=== PATIENT | female | born 1950 | race American Indian/Alaskan Native ===

== ENCOUNTER 2020-07-03 21:48 | Emergency (ER) | payer MEDICARE ==
[2020-07-03 23:23] LABS: Basophils # (Auto) 0.1 K/mm3 (0.0-0.1); Basophils % (Auto) 2.6 % (0.0-1.8); Eosinophils # (Auto) 0.2 K/mm3 (0.0-0.4); Eosinophils % (Auto) 3.2 % (0.0-4.3); Hematocrit 42.6 % (30.3-42.9); Hemoglobin 14.4 gm/dl (10.1-14.3); Lymphocytes # (Auto) 2.5 K/mm3 (1.2-5.4); Lymphocytes % (Auto) 49.4 % (13.4-35.0); Mean Corpuscular HGB Conc 34 % (30-34); Mean Corpuscular Volume 97 fl (79-97); Monocytes # (Auto) 0.4 K/mm3 (0.0-0.8); Monocytes % (Auto) 8.1 % (0.0-7.3); Platelet Count 241 K/mm3 (140-440); Red Blood Count 4.38 M/mm3 (3.65-5.03); Red Cell Distribution Width 13.4 % (13.2-15.2)
[2020-07-03 23:47] LABS: Albumin 4.8 g/dL (3.9-5); Calcium 9.8 mg/dL (8.4-10.2)
[2020-07-03] MEDS ORDERED: MORPHINE 4 MG/1 ML INJ IV ONE (23:57)
[2020-07-03] MEDS ORDERED: ONDANSETRON 4 MG/2 ML INJ IV ONE (23:57)
[2020-07-03] MEDS ORDERED: LACTATED RINGERS 1,000 ML IV ONE (23:57)
--- NOTE | 2020-07-04 00:02 | Emergency Department Report ---
ED General Adult HPI - General Chief complaint: GI Bleed Stated complaint: PAIN AND BLEEDING PUI?: No Time Seen by Provider: 07/03/20 23:39 Source: patient, RN notes reviewed Mode of arrival: Ambulatory Limitations: No Limitations - History of Present Illness Initial comments: The patient was evaluated in the emergency department for symptoms described in the history of present illness. He/she was evaluated in the context of the global COVID-19 pandemic, which necessitated consideration that the patient might be at risk for infection with the virus that causes COVID-19. Institutional protocols and algorithms that pertain to the evaluation of patients at risk for COVID-19 are in a state of rapid change based on informat ion released by regulatory bodies including the CDC and federal and state organizations. These policies and algorithms were followed during the patient's care in the emergency department. Please note that these policies, procedures and recommendations changed on a rapid basis. Primary CARE doctor: Aury During the history and physical examination, I am chaperoned by nurse Maria Elena Oscar Patient is a 69-year-old female. She is not known to myself previously. Her past medical history includes diverticulosis, diverticulitis, high cholesterol. Patient surgical history significant for hysterectomy, and "stent in brain ( for aneurysm)." Patient reports having had a colonoscopy 2 years ago, which was "negative." She presents to the ER with a complaint of nontraumatic left lower quadrant left flank pain, with intermittent brown stool, that is occasionally bloody for the past 3 days. No headache, neck pain, chest pain, shortness of breath. No vomiting. Positive nausea. No dysuria. No travel, surgery, leg pain, leg swelling, patient denies DVT and pulmonary embolism risk factors. She denies loss of taste and smell. Within the past 24 hours, she had brown stool intermixed with red blood. She states she does not take blood thinning medicines currently. Abdominal pain is cramping and sharp, increases with palpation, decreases with rest and position. -: Gradual, days(s) Location: abdomen Radiation: abdomen Quality: aching Consistency: intermittent Improves with: rest Worsens with: movement - Related Data Previous Rx's Medication Instructions Recorded Last Taken Type Acetaminophen [Non-Aspirin Extra 500 mg PO Q6HR PRN #30 tablet 07/04/20 Unknown Rx Strength] Amoxicillin/Potassium Clav 1 each PO BID #9 tablet 07/04/20 Unknown Rx [Augmentin 875-125 Tablet] Kandice Root [Kandice] 250 mg PO QID PRN #30 capsule 07/04/20 Unknown Rx Allergies Allergy/AdvReac Type Severity Reaction Status Date / Time No Known Allergies Allergy Unverified 07/03/20 22:56 ED Review of Systems ROS: Stated complaint: PAIN AND BLEEDING Other details as noted in HPI Constitutional: other (Patient denies loss of taste and smell). denies: fever Eyes: denies: eye discharge ENT: denies: epistaxis Cardiovascular: denies: chest pain Gastrointestinal: abdominal pain, nausea, hematochezia. denies: melena Genitourinary: denies: dysuria Musculoskeletal: back pain Neurological: denies: weakness Hematological/Lymphatic: denies: easy bleeding ED Past Medical Hx - Past Medical History Previous Medical History?: Yes Additional medical history: Diverticolosis, Scoliosis, Brain Anuerysm. Gallstones, High Cholesterol, - Surgical History Past Surgical History?: Yes Additional Surgical History: Stent in brain. Hysterectomy. Left foot. Right foot - Social History Smoking Status: Current Every Day Smoker Substance Use Type: None - Medications Home Medications: Home Medications Medication Instructions Recorded Confirmed Last Taken Type Acetaminophen [Non-Aspirin Extra 500 mg PO Q6HR PRN #30 tablet 07/04/20 Unknown Rx Strength] Amoxicillin/Potassium Clav 1 each PO BID #9 tablet 07/04/20 Unknown Rx [Augmentin 875-125 Tablet] Kadnice Root [Kandice] 250 mg PO QID PRN #30 capsule 07/04/20 Unknown Rx ED Physical Exam - General Limitations: No Limitations General appearance: alert, in no apparent distress - Head Head exam: Present: atraumatic, normocephalic - Eye Eye exam: Present: normal appearance, EOMI. Absent: nystagmus - ENT ENT exam: Present: normal exam, normal orophraynx, mucous membranes moist, normal external ear exam - Neck Neck exam: Present: normal inspection, full ROM. Absent: tenderness, meningismus - Respiratory Respiratory exam: Present: normal lung sounds bilaterally. Absent: respiratory distress, wheezes, rales, rhonchi, stridor, decreased breath sounds - Cardiovascular Cardiovascular Exam: Present: regular rate, normal rhythm, normal heart sounds. Absent: bradycardia, tachycardia, irregular rhythm, systolic murmur, diastolic murmur, rubs, gallop - GI/Abdominal GI/Abdominal exam: Present: soft, tenderness, other (There is left lower quadrant tenderness and left flank tenderness to deep palpation). Absent: distended, guarding, rebound, rigid, pulsatile mass - Rectal Rectal exam: Present: normal inspection, normal rectal tone, heme (-) stool, other (Chaperoned by nurse Cheryl New). Absent: heme (+) stool, black stool, bloody stool, fecal impaction - Extremities Exam Extremities exam: Present: normal inspection, full ROM, other (2+ pulses noted in the bilateral upper and lower extremities. There is no palpable cord. negative Homans sign. Muscular compartments are soft. The pelvis is stable.). Absent: pedal edema, calf tenderness - Back Exam Back exam: Present: normal inspection, full ROM. Absent: tenderness, CVA tenderness (R), CVA tenderness (L), paraspinal tenderness, vertebral tenderness - Neurological Exam Neurological exam: Present: alert, oriented X3, other (No facial droop. Tongue midline. Extraocular movements intact bilaterally. Facial sensation intact to light touch in V1, V2, V3 distribution bilaterally. 5 and a 5 strength in 4 extremities. Sensation intact to light touch in 4 extremities.). Absent: motor sensory deficit - Psychiatric Psychiatric exam: Present: normal affect, normal mood - Skin Skin exam: Present: warm, dry, intact, normal color. Absent: rash ED Course Vital Signs 07/03/20 07/04/20 07/04/20 22:52 01:14 01:16 Temperature 98.1 F Pulse Rate 79 85 88 Respiratory 16 17 15 Rate Blood Pressure 112/76 127/81 O2 Sat by Pulse 97 91 90 Oximetry - Reevaluation(s) Reevaluation #1: 07/04/20 00:01 Differential diagnosis, including but not limited to: Diverticulosis, diverticulitis, angiodysplasia, inflammatory bowel disease, malignancy Assessment and plan: 69-year-old female, with reported history of diverticulosis, left lower quadrant flank pain, reports having had unremarkable colonoscopy within the past 2-1/2 years, likely presenting with diverticulitis flare. We will treat her pain, obtain EKG, urinalysis, obtain CT scan of the abdomen pelvis, and reassess after initial data points. I have discussed this plan of care with the patient, who verbalized understanding, and is amenable to this plan of care. 07/04/20 01:22 Patient resting comfortably at this time, and in no acute distress. CT scan of the abdomen pelvis negative for acute findings. Urinalysis suggests bacteriuria and pyuria. Therefore, it is possible that patient may have a mild case of diverticulitis, not visualized on CT scan, versus mild pyelonephritis. I will cover her empirically with Augmentin, discharged with pain medication, counseled patient to follow-up with outpatient primary care doctor, return precautions are reviewed. At this point in time, belly soft, tolerating liquid feeds, no active vomiting, suitable for trial of outpatient management 07/04/20 01:26 Patient saturating 97% on my examination, documented pulse ox is of 90/91 likely error. Patient has endorsed no respiratory complaints to myself. ED Medical Decision Making - Lab Data Result diagrams: 07/03/20 23:06 07/03/20 23:06 Vital Signs 07/03/20 07/04/20 07/04/20 22:52 01:14 01:16 Temperature 98.1 F Pulse Rate 79 85 88 Respiratory 16 17 15 Rate Blood Pressure 112/76 127/81 O2 Sat by Pulse 97 91 90 Oximetry Lab Results 07/03/20 07/03/20 07/03/20 Range/Units 23:05 23:06 23:06 WBC 5.0 (4.5-11.0) K/mm3 RBC 4.38 (3.65-5.03) M/mm3 Hgb 14.4 H (10.1-14.3) gm/dl Hct 42.6 (30.3-42.9) % MCV 97 (79-97) fl MCH 33 H (28-32) pg MCHC 34 (30-34) % RDW 13.4 (13.2-15.2) % Plt Count 241 (140-440) K/mm3 Lymph % (Auto) 49.4 H (13.4-35.0) % [place] % (Auto) 8.1 H (0.0-7.3) % Eos % (Auto) 3.2 (0.0-4.3) % Baso % (Auto) 2.6 H (0.0-1.8) % Lymph # (Auto) 2.5 (1.2-5.4) K/mm3 [place] # (Auto) 0.4 (0.0-0.8) K/mm3 Eos # (Auto) 0.2 (0.0-0.4) K/mm3 Baso # (Auto) 0.1 (0.0-0.1) K/mm3 Seg Neutrophils % 36.7 L (40.0-70.0) % Seg Neutrophils # 1.8 (1.8-7.7) K/mm3 Sodium 141 (137-145) mmol/L Potassium 5.1 H (3.6-5.0) mmol/L Chloride 102.3 (98-107) mmol/L Carbon Dioxide 29 (22-30) mmol/L Anion Gap 15 mmol/L BUN 17 (7-17) mg/dL Creatinine 1.2 (0.6-1.2) mg/dL Estimated GFR 54 ml/min BUN/Creatinine Ratio 14 % Glucose 96 (65-100) mg/dL Calcium 9.8 (8.4-10.2) mg/dL Magnesium (1.7-2.3) mg/dL Total Bilirubin 0.20 (0.1-1.2) mg/dL AST 18 (5-40) units/L ALT 10 (7-56) units/L Alkaline Phosphatase 104 (35-129) units/L Total Creatine Kinase (30-135) units/L Total Protein 7.3 (6.3-8.2) g/dL Albumin 4.8 (3.9-5) g/dL Albumin/Globulin Ratio 1.9 % Urine Color Yellow (Yellow) Urine Turbidity Clear (Clear) Urine pH 5.0 (5.0-7.0) Ur Specific [place] 1.014 (1.003-1.030) Urine Protein <15 mg/dl (Negative) mg/dL Urine Glucose (UA) Neg (Negative) mg/dL Urine Ketones Neg (Negative) mg/dL Urine Blood Neg (Negative) Urine Nitrite Neg (Negative) Urine Bilirubin Neg (Negative) Urine Urobilinogen 2.0 (<2.0) mg/dL Ur Leukocyte Esterase Sm (Negative) Urine WBC (Auto) 5.0 (0.0-6.0) /HPF Urine RBC (Auto) 3.0 (0.0-6.0) /HPF U Epithel Cells (Auto) 4.0 (0-13.0) /HPF Urine Bacteria (Auto) 1+ (Negative) /HPF Urine Mucus Few /HPF 07/03/20 Range/Units 23:06 WBC (4.5-11.0) K/mm3 RBC (3.65-5.03) M/mm3 Hgb (10.1-14.3) gm/dl Hct (30.3-42.9) % MCV (79-97) fl MCH (28-32) pg MCHC (30-34) % RDW (13.2-15.2) % Plt Count (140-440) K/mm3 Lymph % (Auto) (13.4-35.0) % [place] % (Auto) (0.0-7.3) % Eos % (Auto) (0.0-4.3) % Baso % (Auto) (0.0-1.8) % Lymph # (Auto) (1.2-5.4) K/mm3 [place] # (Auto) (0.0-0.8) K/mm3 Eos # (Auto) (0.0-0.4) K/mm3 Baso # (Auto) (0.0-0.1) K/mm3 Seg Neutrophils % (40.0-70.0) % Seg Neutrophils # (1.8-7.7) K/mm3 Sodium (137-145) mmol/L Potassium (3.6-5.0) mmol/L Chloride (98-107) mmol/L Carbon Dioxide (22-30) mmol/L Anion Gap mmol/L BUN (7-17) mg/dL Creatinine (0.6-1.2) mg/dL Estimated GFR ml/min BUN/Creatinine Ratio % Glucose (65-100) mg/dL Calcium (8.4-10.2) mg/dL Magnesium 2.20 (1.7-2.3) mg/dL Total Bilirubin (0.1-1.2) mg/dL AST (5-40) units/L ALT (7-56) units/L Alkaline Phosphatase (35-129) units/L Total Creatine Kinase 168 H (30-135) units/L Total Protein (6.3-8.2) g/dL Albumin (3.9-5) g/dL Albumin/Globulin Ratio % Urine Color (Yellow) Urine Turbidity (Clear) Urine pH (5.0-7.0) Ur Specific [place] (1.003-1.030) Urine Protein (Negative) mg/dL Urine Glucose (UA) (Negative) mg/dL Urine Ketones (Negative) mg/dL Urine Blood (Negative) Urine Nitrite (Negative) Urine Bilirubin (Negative) Urine Urobilinogen (<2.0) mg/dL Ur Leukocyte Esterase (Negative) Urine WBC (Auto) (0.0-6.0) /HPF Urine RBC (Auto) (0.0-6.0) /HPF U Epithel Cells (Auto) (0-13.0) /HPF Urine Bacteria (Auto) (Negative) /HPF Urine Mucus /HPF - EKG Data -: EKG Interpreted by [facility] EKG shows normal: sinus rhythm Rate: normal - EKG Data When compared to previous EKG there are: previous EKG unavailable 07/04/20 01:20 Time of EKG interpretation, 1: 10 AM July 04, 2020 Sinus rhythm, 84 bpm. Normal axis, QTC 443 ms. Left ventricular hypertrophy, poor R wave progression, intervals otherwise within normal limits, this EKG is not a STEMI. There is no prior for comparison. - Radiology Data Radiology results: pending, report reviewed, image reviewed CT abdomen pelvis w con INDICATION: llq pain, diverticulitis, gi bleed. COMPARISON: None TECHNIQUE: Abdominal and pelvic CT exam performed. All CT scans at this location are performed using CT dose reduction for ALARA by means of automated exposure control. FINDINGS: CT ABDOMEN and PELVIS: Lung Bases: Scarring and/or subsegmental atelectasis in the lung bases. Liver: No significant abnormality. Biliary: Gallstones without gallbladder wall thickening or pericholecystic fluid. Spleen: No significant abnormality. Pancreas: No significant abnormality. Adrenals: No significant abnormality. Kidneys: Subcentimeter hypoattenuating renal lesions are most likely cysts. No stones. No hydronephrosis. Lymphatics: No lymphadenopathy. Vasculature: No significant abnormality. Bowel: Diverticulosis without colonic wall thickening or pericolonic stranding. Normal appendix. Pelvis: No significant abnormality. Osseous Structures: Severe dextro scoliosis of the thoracic spine which is incompletely visualized. Additional Findings: None IMPRESSION: 1. No acute abnormality of the abdomen or pelvis. 2. Cholelithiasis without cholecystitis. Signer Name: Bright Preston MD Signed: 07/03/2020 11:57 PM Workstation Name: [id number] Critical care attestation.: If time is entered above; I have spent that time in minutes in the direct care of this critically ill patient, excluding procedure time. ED Disposition Clinical Impression: Left lower quadrant abdominal pain, History of GI bleed, Bacteriuria with pyuria Disposition: - TO HOME OR SELFCARE Is pt being admited?: No Does the pt Need Aspirin: No Condition: Good Instructions: Diverticulitis, Abdominal Pain, Adult, [id number] Additional Instructions: Do not take metformin medication for the next 2 days, if patient takes this medication. Take the pain medication, nausea medication as needed and directed. Take the antibiotics as directed. Advance diet as tolerated, drink plenty of water, gently advance diet, bread, rice, apples, toast. Please follow-up with your primary care doctor or manager water wastewater within the next 5 to 7 days for repeat checkup/evaluation. Patient had a CT scan of her abdomen pelvis which did not demonstrate any acute abnormality today. Laboratory studies were unremarkable, urinalysis suggested small bacteria in the urine. It is possible that the patient may have a mild case of diverticulitis not visualized on CT scan of the abdomen pelvis, versus early urinary tract infection/kidney infection. Therefore, patient is being given a prescription for antibiotics. Please take the antibiotics as directed. Please return to the emergency room right away with new pain, worsened pain, migration of pain, projectile vomiting, change in mental status, confusion, inability to tolerate liquid feeds, new, worsened or different symptoms not present on the initial emergency room evaluation. Avoid consumption of tobacco, alcohol, heavy and spicy foods, minimize/avoid consumption of Motrin, ibuprofen, Naprosyn, Aleve. Prescriptions: Amoxicillin/Potassium Clav [Augmentin 875-125 Tablet] 1 each PO BID #9 tablet Kandice Root [Kandice] 250 mg PO QID PRN #30 capsule PRN Reason: Nausea Acetaminophen [Non-Aspirin Extra Strength] 500 mg PO Q6HR PRN #30 tablet PRN Reason: Pain , Severe (7-10) Referrals: GUSTAVO KIRKLAND MD [Primary Care Provider] - 3-5 Days Forms: Accompanied Note
[2020-07-04 00:31] LABS: Bacteria,Urine 1+ /HPF (Negative); Bilirubin,Urine NEG (Negative); Blood,Urine NEG (Negative); Color,Urine Yellow (Yellow); Mucus,Urine FEW /HPF; Protein,Urine <15 mg/dL mg/dL (Negative)
--- NOTE | 2020-07-04 01:02 | Cat Scan Report ---
CT abdomen pelvis w con INDICATION: llq pain, diverticulitis, gi bleed. COMPARISON: None TECHNIQUE: Abdominal and pelvic CT exam performed. All CT scans at this location are performed using CT dose reduction for ALARA by means of automated exposure control. FINDINGS: CT ABDOMEN and PELVIS: Lung Bases: Scarring and/or subsegmental atelectasis in the lung bases. Liver: No significant abnormality. Biliary: Gallstones without gallbladder wall thickening or pericholecystic fluid. Spleen: No significant abnormality. Pancreas: No significant abnormality. Adrenals: No significant abnormality. Kidneys: Subcentimeter hypoattenuating renal lesions are most likely cysts. No stones. No hydronephro sis. Lymphatics: No lymphadenopathy. Vasculature: No significant abnormality. Bowel: Diverticulosis without colonic wall thickening or pericolonic stranding. Normal appendix. Pelvis: No significant abnormality. Osseous Structures: Severe dextro scoliosis of the thoracic spine which is incompletely visualized. Additional Findings: None IMPRESSION: 1. No acute abnormality of the abdomen or pelvis. 2. Cholelithiasis without cholecystitis. Signer Name: Bright Preston MD Signed: 07/04/2020 12:57 AM Workstation Name: [id number]
[2020-07-04 01:20] VITALS: BP 127/81
[2020-07-04] MEDS ORDERED: AMOXICILLIN/K CLAV 875/125MG TAB PO ONE (01:23)
== END 2020-07-04 02:03 | disposition home or self-care (01) ==
LOC: ED 21:48
DX: R82.71 Bacteriuria (principal); R82.81 Pyuria; R10.32 Left lower quadrant pain; K92.2 Gastrointestinal hemorrhage, unspecified; F17.200 Nicotine dependence, unspecified, uncomplicated; Z90.710 Acquired absence of both cervix and uterus; Z98.890 Other specified postprocedural states; Z79.2 Long term (current) use of antibiotics; Z79.899 Other long term (current) drug therapy
CPT/HCPCS: 36415; 74177; 80053; 81001; 82550; 83735; 85025; 93005; 96361; 96374; 96375; 99284; J2270; J2405; J7120; Q9967